=== PATIENT | female | born 1960 | race Caucasian/White ===

== ENCOUNTER 2017-12-31 17:55 | Observation (INO) ==
--- NOTE | 2017-12-31 18:23 | DR.EXTPAIN ---
HPI - Time seen Time seen: 18:30 - PCP Primary Care Physician: cal osborne - HPI Comment HPI Comment: HISTORY BOWEL OBSTRUCTION. SYMTOMS SIMILAR TO WHEN PATIENT HAVE BOWEL OBSTRUCTION. NO FEVER. NAUSEA WITH NON PROJECTILE VOMITING. DENIES DYSURIA. CONSTIPATION. LAST BM 2 DAYS AGO. - Complaint/Symptoms Chief Complaint Doctor Comments: ABDOMINAL PAIN AND DISTENSION FOE 2 DAYS. Chief Complaint:: pt stated her abd is swollowen and had a bm 2 days ago. she stated she has had problems with obstructions since 1987 - Nurses notes reviewed Nurses Notes Review: Yes - Source History Provided: Patient - Mode of arrival Mode of Arrival: Ambulatory - Timing Onset of Chief Complaint: 12/29/17 - Context History of: None - Associated signs and symptoms Associated Signs and Symptoms: Pain PMH - PMH Past Medical History: Yes Past Medical History: Seizures Past Surgical History: Yes Surgical History: Abdominal Surgery, Appendectomy, Cholecystectomy, Hysterectomy , Tonsillectomy - Family History History of Family Medical Conditions: No - Social History Does patient currently use any type of tobacco product: No Have you used tobacco products in the last 12 months: No Type of Tobacco Use: None Does any household member use tobacco: No Alcohol Use: None Do you use any recreational Drugs:: No Lives With: Mom Lives Where: Home - infectious screening In the last 2 months have you had wt loss of >10#?: NO Have you had fever, night sweats or hemotysis?: No Have you traveled outside the country in the last 6 months?: No Isolation: Standard ROS - Review of Systems Constitutional: Weakness, Fatigue, Loss of Appetite. negative: Chills, Fever Eyes: No Symptoms Reported. negative: Eye Pain, Discharge ENTM: No Symptoms Reported. negative: Ear Pain, Nose Discharge, Nose Congestion , Throat Pain Respiratoy: No Symptoms Reported. negative: Productive Cough, Non-Productive Cough, Short of Breath, Wheezing, Hemoptysis Cardiovascular: No Symptoms Reported Gastrointestinal/Abdominal: Abdominal Pain, Nausea, Vomiting Genitourinary: No Symptoms Reported. negative: Dysuria, Frequency, Hematuria Neurological: No Symptoms Reported, Weakness. negative: Headache, Dizziness Musculoskeletal: Muscle Pain Integumentary: No Symptoms Reported Hematologic/Lymphatic: No Symptoms Reported Endocrine: No Symptoms Reported All Other Systems: Reviewed and Negative PE - General Limitations: No Limitations General Appearance: Alert - Head Head Exam: Normal Inspection - Eyes Eye exam: Normal Appearance - ENT ENT Exam: Normal External Ear Exam - Neck Neck Exam: Trachea Midline - Chest Chest Inspection: Symmetric Chest Wall Rise - Respiratory Respiratory Exam: Normal Lung Sounds Bilat Respiratory Exam: Bilateral Clear to Auscultation - Cardiovascular Cardiovascular Exam: Regular Rate, Normal Rhythm, Normal Heart Sounds - Abdominal Exam Abdominal Exam: Normal Bowel Sounds, Distention, Tenderness Abdominal Tenderness: Diffuse, Moderate - Extremities Extremities Exam: Normal Inspection - Upper Extremities Shoulder Exam: Normal Inspection - Lower Extremities Neurovascular/Tendon Exam: Normal Capillary Refill Gait Exam: Observed and Normal - Back Back Exam: Normal Inspection - Neurological Neurological Exam: Alert, Oriented X3 - Psychiatric Psychiatric Exam: Normal Affect, Normal Mood - Skin Skin Exam: Normal Color - Vital Signs Vitals: Temperature 98.9 F Pulse Rate 105 Respiratory Rate 16 Blood Pressure 125/56 O2 Sat by Pulse Oximetry 97 MDM - Differential Diagnosis Differential Diagnosis: Other (ABDOMINAL PAIN, UTI, BOWEL OBSTRUCTION) Course - Treatment Treatment: SEE ORDERS - Education/Counseling Education/Counseling: Patient, Education Educated On: Diagnosis, Needs for Follow Up ROR - Labs Reviewed Laboratory Results Reviewed?: Yes Result Diagrams: 12/31/17 18:50 12/31/17 18:50 - XRAY XRAY Findings: REPORT DISCUSS WITH PATIENT. - Labs Reviewed Laboratory: WBC 7.7 X10^3/uL (3.6-10.0) 12/31/17 18:50 RBC 4.01 X10^6/uL (3.5-5.4) 12/31/17 18:50 Hgb 11.1 g/dL (12.0-16.0) L 12/31/17 18:50 Hct 33.9 % (36.0-47.0) L 12/31/17 18:50 MCV 84.8 fL (80.0-100.0) 12/31/17 18:50 MCH 27.7 pg (27.0-34.0) 12/31/17 18:50 MCHC 32.6 g/dL (33.0-35.0) L 12/31/17 18:50 RDW 15.8 % (11.6-16.5) 12/31/17 18:50 Plt Count 391 X10^3/uL (150.0-450.0) 12/31/17 18:50 MPV 6.5 fL (7.4-11.0) L 12/31/17 18:50 Neut % (Auto) 58.7 % (42.0-75.0) 12/31/17 18:50 Lymph % (Auto) 29.9 % (21.0-51.0) 12/31/17 18:50 [place] % (Auto) 7.5 % (0.0-13.0) 12/31/17 18:50 Eos % (Auto) 2.8 % (0.9-2.9) 12/31/17 18:50 Baso % (Auto) 1.1 % (0.2-1.0) H 12/31/17 18:50 Neut # (Auto) 4.6 x10^3/uL (2.2-4.8) 12/31/17 18:50 Lymph # (Auto) 2.3 X10^3/uL (1.3-2.9) 12/31/17 18:50 [place] # (Auto) 0.6 x10^3/uL (0.3-0.8) 12/31/17 18:50 Eos # (Auto) 0.2 x10^3/uL (0.0-0.2) 12/31/17 18:50 Baso # (Auto) 0.1 X10^3/uL (0.0-0.1) 12/31/17 18:50 Absolute Nucleated RBC 0.1 /100WBC 12/31/17 18:50 Sodium 138 mmol/L (136-145) 12/31/17 18:50 Corrected Sodium TNP 12/31/17 18:50 Potassium 3.8 mmol/L (3.5-5.1) 12/31/17 18:50 Chloride 101 mmol/L (98-107) 12/31/17 18:50 Carbon Dioxide 26.3 mmol/L (21-32) 12/31/17 18:50 BUN 16 mg/dL (7-18) 12/31/17 18:50 Creatinine 1.00 mg/dL (0.55-1.02) 12/31/17 18:50 Est GFR (MDRD) Af Amer > 60 (>60) 12/31/17 18:50 Est GFR (MDRD) Non-Af > 60 (>60) 12/31/17 18:50 Glucose 107 mg/dL (65-99) H 12/31/17 18:50 Calcium 9.6 mg/dL (8.5-10.1) 12/31/17 18:50 Corrected Calcium TNP 12/31/17 18:50 Total Bilirubin 0.20 mg/dL (0.2-1.0) 12/31/17 18:50 AST 21 Units/L (15-37) 12/31/17 18:50 ALT 22 Units/L (12-78) 12/31/17 18:50 Alkaline Phosphatase 135 Units/L (46-116) H 12/31/17 18:50 Total Protein 7.8 g/dL (6.4-8.2) 12/31/17 18:50 Albumin 4.0 g/dL (3.4-5.0) 12/31/17 18:50 Globulin 3.8 g/dL (2.5-4.5) 12/31/17 18:50 Albumin/Globulin Ratio 1.1 Ratio (1.1-2.1) 12/31/17 18:50 Amylase 34 Units/L (25-115) 12/31/17 18:50 Lipase 89 Units/L (73-393) 12/31/17 18:50 Specimen Type Clean catch urine 12/31/17 18:37 Urine Color Yellow (YELLOW) 12/31/17 18:37 Urine Appearance Clear (CLEAR) 12/31/17 18:37 Urine pH 6.0 (5.0 - 8.0) 12/31/17 18:37 Ur Specific [place] 1.015 (1.000-1.030) 12/31/17 18:37 Urine Protein Negative (NEGATIVE) 12/31/17 18:37 Urine Glucose (UA) Negative (NEGATIVE) 12/31/17 18:37 Urine Ketones Negative (NEGATIVE) 12/31/17 18:37 Urine Occult Blood Negative (NEGATIVE) 12/31/17 18:37 Urine Nitrite Negative (NEGATIVE) 12/31/17 18:37 Urine Bilirubin Negative (NEGATIVE) 12/31/17 18:37 Urine Urobilinogen Normal (NORMAL) 12/31/17 18:37 Ur Leukocyte Esterase 1+ (NEGATIVE) 12/31/17 18:37 Urine RBC 0-2 /HPF (NONE SEEN) 12/31/17 18:37 Urine WBC 3-5 /HPF (NONE SEEN) 12/31/17 18:37 Ur Squamous Epith Cells Many /HPF (NEGATIVE) 12/31/17 18:37 Urine Bacteria Trace /HPF (NEGATIVE) 12/31/17 18:37 Ur Culture Indicated? No/not indicated 12/31/17 18:37 - Diagnosis Discharge Problem: Partial bowel obstruction Qualifiers: Intestinal obstruction type: other intestinal obstruction Qualified Code(s): K56.690 - Other partial intestinal obstruction Abdominal pain Qualifiers: Abdominal location: generalized Qualified Code(s): R10.84 - Generalized abdominal pain - Discharge Plan Condition: Stable
[2017-12-31 19:02] LABS: BILIRUBIN,URINE NEGATIVE (NEGATIVE); BLOOD/HEMOGLOBIN,URINE NEGATIVE (NEGATIVE); GLUCOSE, URINE NEGATIVE (NEGATIVE); KETONES,URINE NEGATIVE (NEGATIVE); LEUKOCYTE ESTERASE ,URINE 1+ (NEGATIVE); NITRITES,URINE NEGATIVE (NEGATIVE); PROTEIN,URINE NEGATIVE (NEGATIVE); UROBILINOGEN,URINE NORMAL (NORMAL)
[2017-12-31 19:04] LABS: APPEARANCE,URINE CLEAR (CLEAR); COLOR,URINE YELLOW (YELLOW)
[2017-12-31 19:08] LABS: BACTERIA,URINE TRACE /HPF (NEGATIVE); RBC,URINE 0-2 /HPF (NONE SEEN); SQUAMOUS EPITHELIAL CELL,UR MANY /HPF (NEGATIVE)
[2017-12-31 19:18] LABS: BASOPHILS # (AUTO) 0.1 X10^3/uL (0.0-0.1); BASOPHILS % (AUTO) 1.1 % (0.2-1.0); EOSINOPHILS # (AUTO) 0.2 x10^3/uL (0.0-0.2); EOSINOPHILS % (AUTO) 2.8 % (0.9-2.9); HEMATOCRIT 33.9 % (36.0-47.0); HEMOGLOBIN 11.1 g/dL (12.0-16.0); LYMPHOCYTES # (AUTO) 2.3 X10^3/uL (1.3-2.9); LYMPHOCYTES % (AUTO) 29.9 % (21.0-51.0); MEAN CORPUSCULAR HEMOGLOBIN 27.7 pg (27.0-34.0); MEAN CORPUSCULAR HGB CONC 32.6 g/dL (33.0-35.0); MEAN CORPUSCULAR VOLUME 84.8 fL (80.0-100.0); MEAN PLATELET VOLUME 6.5 fL (7.4-11.0); MONOCYTES # (AUTO) 0.6 x10^3/uL (0.3-0.8); MONOCYTES % (AUTO) 7.5 % (0.0-13.0); NEUTROPHILS # (AUTO) 4.6 x10^3/uL (2.2-4.8); NEUTROPHILS % (AUTO) 58.7 % (42.0-75.0); PLATELET COUNT 391 X10^3/uL (150.0-450.0); RED BLOOD COUNT 4.01 X10^6/uL (3.5-5.4); RED CELL DISTRIBUTION WIDTH 15.8 % (11.6-16.5); WHITE BLOOD COUNT 7.7 X10^3/uL (3.6-10.0)
[2017-12-31 19:33] LABS: ALANINE AMINOTRANSFERASE 22 Units/L (12-78); ALKALINE PHOSPHATASE 135 Units/L (46-116); AMYLASE 34 Units/L (25-115); ASPARTATE AMINO TRANSFERASE 21 Units/L (15-37); BLOOD UREA NITROGEN 16 mg/dL (7-18); CALCIUM 9.6 mg/dL (8.5-10.1); CARBON DIOXIDE 26.3 mmol/L (21-32); CHLORIDE 101 mmol/L (98-107); LIPASE 89 Units/L (73-393); SODIUM 138 mmol/L (136-145); TOTAL PROTEIN 7.8 g/dL (6.4-8.2); eGFR NON BLACK RACES > 60 (>60)
--- NOTE | 2017-12-31 19:38 | CT ---
CT abdomen and pelvis without contrast Indication: Abdominal swelling, constipation Comparison: None Technique: CT images of the abdomen and pelvis were obtained without contrast. Automatic exposure con trol was utilized. Findings: No acute skeletal abnormality. The lung bases are grossly clear. The visualized portions of bilateral breast implants are grossly intact. Evaluation of the abdominal pelvic viscera is limited without contrast. Previous cholecystectomy is n oted. There is dilatation of the common duct, which measures 1.7 cm in diameter at the level of the p luis manuel hepatis. There is suggestion of intrahepatic biliary dilation as well. No radiopaque ductal ston e or obvious obstructing periampullary mass is observed. Within noncontrast limitations, the remainde r of the liver, spleen, stomach, duodenum, pancreas, adrenals, and kidneys demonstrate no significant abnormality, aside from a tiny nonobstructing stone within the left upper renal pole collecting syst em. No ureteral stones are observed. Previous sigmoid anastomosis is noted, with mild perianastomotic dilatation. There is moderate coloni c stool burden distally. There is mild gas dilatation of the colon more proximally. No marked small b owel dilatation is observed. The uterus is not identified. The urinary bladder and rectum are unremar kable. No free fluid or adenopathy. Impression: 1. Moderate distal colonic stool burden, suggestive for constipation. There is mild gas dilatation of the more proximal colon, which could represent ileus or low-grade partial obstruction. 2. Fairly marked intrahepatic and extrahepatic biliary dilation, without obvious source. Correlate wi th biliary markers of obstruction. ERCP or MRCP could be helpful, if indicated. 3. Tiny nonobstructing left renal stone and other findings as above. Reported By:
[2017-12-31] MEDS ORDERED: NS 1000 ML 1,000 ML IV ONE (21:03)
[2017-12-31] MEDS ORDERED: ZOFRAN INJ 4 MG VIAL IVP ONE (21:03)
[2017-12-31] MEDS ORDERED: DILAUDID INJ IVP ONE (21:04)
[2017-12-31] MEDS ORDERED: ZOFRAN INJ 4 MG VIAL ONE (21:12)
[2017-12-31] MEDS ORDERED: NS 1000 ML 1,000 ML ONE (21:12)
[2017-12-31] MEDS ORDERED: DILAUDID INJ ONE (21:14)
[2017-12-31] MEDS ORDERED: PATIENT'S HOME MEDICATION (Lorazepam [Lorazepam] 1 TAB) PO SCH (23:45)
[2017-12-31] MEDS ORDERED: ZANAFLEX PO PRN (23:50)
[2017-12-31] MEDS: NS 1000 ML 1,000 ML IV SCH (23:55)
[2017-12-31] MEDS: PROTONIX INJ 40 MG VIAL IVP SCH (23:55)
[2018-01-01] MEDS ORDERED: ATIVAN TAB 1 MG ONE
[2018-01-01] MEDS ORDERED: LAMICTAL TAB 100 MG PO ONE
[2018-01-01 01:06] VITALS: BMI 30.2
[2018-01-01] MEDS: DILAUDID INJ IVP PRN ×6 (01:22→22:10)
[2018-01-01] MEDS: ATIVAN TAB 1 MG PO SCH ×4 (02:02→22:00)
[2018-01-01] MEDS: ZOFRAN INJ 4 MG VIAL IVP PRN ×3 (05:49→22:21)
[2018-01-01 06:14] LABS: BASOPHILS # (AUTO) 0.1 X10^3/uL (0.0-0.1); BASOPHILS % (AUTO) 1.1 % (0.2-1.0); EOSINOPHILS # (AUTO) 0.3 x10^3/uL (0.0-0.2); EOSINOPHILS % (AUTO) 3.2 % (0.9-2.9); HEMATOCRIT 30.7 % (36.0-47.0); HEMOGLOBIN 10.3 g/dL (12.0-16.0); LYMPHOCYTES # (AUTO) 2.7 X10^3/uL (1.3-2.9); LYMPHOCYTES % (AUTO) 29.7 % (21.0-51.0); MEAN CORPUSCULAR HEMOGLOBIN 28.1 pg (27.0-34.0); MEAN CORPUSCULAR HGB CONC 33.6 g/dL (33.0-35.0); MEAN CORPUSCULAR VOLUME 83.7 fL (80.0-100.0); MEAN PLATELET VOLUME 6.7 fL (7.4-11.0); MONOCYTES % (AUTO) 10.7 % (0.0-13.0); NEUTROPHILS # (AUTO) 5.1 x10^3/uL (2.2-4.8); NEUTROPHILS % (AUTO) 55.3 % (42.0-75.0); PLATELET COUNT 346 X10^3/uL (150.0-450.0); RED BLOOD COUNT 3.66 X10^6/uL (3.5-5.4); RED CELL DISTRIBUTION WIDTH 16.4 % (11.6-16.5)
[2018-01-01 06:20] LABS: ALANINE AMINOTRANSFERASE 9 Units/L (12-78); ALBUMIN 3.4 g/dL (3.4-5.0); ALKALINE PHOSPHATASE 111 Units/L (46-116); ASPARTATE AMINO TRANSFERASE 20 Units/L (15-37); BLOOD UREA NITROGEN 14 mg/dL (7-18); CALCIUM 8.5 mg/dL (8.5-10.1); CARBON DIOXIDE 24.9 mmol/L (21-32); CHLORIDE 104 mmol/L (98-107); CREATININE 0.77 mg/dL (0.55-1.02); SODIUM 139 mmol/L (136-145); TOTAL PROTEIN 6.6 g/dL (6.4-8.2); eGFR NON BLACK RACES > 60 (>60)
[2018-01-01 06:33] LABS: PLATELET MORPHOLOGY COMMENT NORMAL (NORMAL); WHITE BLOOD COUNT 9.9 X10^3/uL (3.6-10.0)
[2018-01-01] MEDS ORDERED: LAMOTRIGINE PO SCH (09:00)
[2018-01-01] MEDS: PROTONIX INJ 40 MG VIAL IVP SCH (09:17)
[2018-01-01] MEDS: NS 1000 ML 1,000 ML IV SCH ×3 (09:17→23:00)
--- NOTE | 2018-01-01 09:17 | RAD ---
HISTORY: Abdominal pain. Possible small bowel obstruction. Study: Frontal view of the chest, flat and upright views of the abdomen Comparison: CT 1 day prior Findings: Cardiomediastinal silhouette is normal in size. No focal consolidations, pleural effusions or pneumot horax. Osseous structures are without acute abnormality. Flat and upright views of the abdomen demonstrates a number of prominent loops of air-filled large seb wel. Distal bowel gas present. No free air. No abnormal calcifications or abnormal soft tissue shado ws. No acute bony abnormalities. IMPRESSION: 1. No acute cardiopulmonary disease. 2. Prominent loops of large bowel. Although these are not pathologically enlarged, a more distal obs truction cannot be completely excluded. Correlate with bowel habits. Reported By:
[2018-01-01] MEDS: LAMICTAL TAB 100 MG PO SCH ×2 (09:18→22:01)
[2018-01-01] MEDS: TYLENOL 325 MG TAB PO PRN ×2 (09:55→14:55)
[2018-01-01] MEDS ORDERED: NS 100 ML IV + SPIKE MINIBAG* 100 ML IV ONE ×2 (13:17→20:05)
[2018-01-01] MEDS ORDERED: NS 250 ML IV 250 ML IV ONE (13:22)
[2018-01-01] MEDS: ZOSYN VIAL 3.375 GRAMS IV SCH ×2 (13:32→22:00)
--- NOTE | 2018-01-01 13:32 | DR.H&P ---
H&P - History & Physical for Day of: H&P Date: 12/31/17 - Chief Complaint Chief Complaint: ABDOMINAL PAIN - History of Present Illness History of Present Illness: 57 WF ER ADMISSION WITH CO ABDOMINAL PAIN. PT HAS HX OF MULTPLE ABDOMINAL SURGERIES AND BOWEL OBSTRUCTIONS PT HAS BEEN UNDER THE CARE OF SURGEON IN [place], HX OF PARTIAL COLECTOMY. PT CO ABDOMINAL GRADUALY WORSE OVER LAST 2 DAYS. ER EVALUATION REVEALS BOWEL OBTRUCTION, PT ADMITTED FOR PAIN CONTROL, SURGICAL CONSULT - Past Medical History Past Medical History: Seizures Additional Medical History: ABDOMINAL ADHESIONS - Past Surgical History Surgical History: Appendectomy, Cholecystectomy, Hysterectomy, Tonsillectomy, Other - Social History Does patient currently use any type of tobacco product: No Have you used tobacco products in the last 12 months: No Type of Tobacco Use: None Does any household member use tobacco: No Alcohol Use: None Drug Use: None - Medications Home Medications: gabapentin [From Neurontin] Allergy (Verified 12/31/17 17:57) metoclopramide [From Reglan] Allergy (Verified 12/31/17 17:57) sertraline [From Zoloft] Allergy (Verified 12/31/17 17:57) morphine Adverse Reaction (Verified 12/31/17 17:57) CONTINUE taking the following medications acetaminophen-codeine [Tylenol-Codeine #4] 1 tab PO Q6H PRN 12/31/17 [History] dicyclomine 1 tab PO DAILY 12/31/17 [History] duloxetine 1.5 tab PO HS 12/31/17 [History] lamotrigine 1.5 tab PO BID 12/31/17 [History] lorazepam 1 tab PO Q6H 12/31/17 [History] omeprazole 1 tab PO BID 12/31/17 [History] promethazine 1 tab PO Q6H PRN 12/31/17 [History] tizanidine 1 tab PO BID PRN 12/31/17 [History] zolpidem 1 tab PO HS 12/31/17 [History] - Review of Systems Constitutional: Weakness Eyes: No Symptoms Reported ENT: No Symptoms Reported Respiratory: No Symptoms Reported Cardiovascular: No Symptoms Reported Gastrointestinal: Nausea, Abdominal Pain, Constipation Genitourinary: No Symptoms Reported Musculoskeletal: No Symptoms Reported Skin: No Symptoms Reported Neurological: No Symptoms Reported - Physical Exam Vital Signs: Temperature 98.2 F Pulse Rate [Left Brachial] 99 Pulse Rate 105 Respiratory Rate 18 Blood Pressure [Right Arm] 111/59 Blood Pressure [Left Arm] 110/57 Blood Pressure 125/56 O2 Sat by Pulse Oximetry 91 Oriented: Normal Eyes: Normal Ear: Normal Nose: Normal Throat: Normal Respiratory: Clear Throughout Cardiovascular: Normal : Normal Auscultation: Bowel Sounds: Increased Tenderness: Diffuse Skin: Normal Musculoskeletal: Normal Psychiatric: Normal Mood Description: Calm Speech Pattern: Clear, Appropriate - Assessment/Plan (1) Partial bowel obstruction Qualifiers: Intestinal obstruction type: other intestinal obstruction Qualified Code(s) : K56.690 - Other partial intestinal obstruction Status: Acute Plan: ADMIT, NPO, IV HYDRATION PAIN CONTROL. REPEAT AM KUB. VERIFY HOME MEDS, SURGICAL CONSULT (2) Abdominal pain Qualifiers: Abdominal location: generalized Qualified Code(s): R10.84 - Generalized abdominal pain Status: Acute - Allergies Allergies/Adverse Reactions: Allergies Allergy/AdvReac Type Severity Reaction Status Date / Time gabapentin [From Neurontin] Allergy Verified 12/31/17 17:57 metoclopramide [From Reglan] Allergy Verified 12/31/17 17:57 sertraline [From Zoloft] Allergy Verified 12/31/17 17:57 morphine AdvReac Verified 12/31/17 17:57
--- NOTE | 2018-01-01 13:42 | PCM.PROG ---
Progress Note - Progress Note for Day of Date: 01/01/18 - Subjective Subjective: 57 WF ER ADMISSION WITH ABDOMINAL PAIN, BOWEL OBSTRUCTION, CONSTIPATION. DR PATTERSON CONSULTING. PT NPO. BOWEL SOUNDS PRESENT, CONTINUE ABDOMINAL TENDERNESS, REPEAT KUB THIS AM - Past Medical Family Social History Past Med/Fam/Surg Hx: No changes since H&P Allergies: Allergies gabapentin [From Neurontin] Allergy (Verified 12/31/17 17:57) metoclopramide [From Reglan] Allergy (Verified 12/31/17 17:57) sertraline [From Zoloft] Allergy (Verified 12/31/17 17:57) morphine Adverse Reaction (Verified 12/31/17 17:57) - Review of Systems ROS: No change since H&P - Vital Signs and I&O's Vital Signs: Temperature 98.2 F Pulse Rate [Left Brachial] 99 Pulse Rate 105 Respiratory Rate 18 Blood Pressure [Right Arm] 111/59 Blood Pressure [Left Arm] 110/57 Blood Pressure 125/56 O2 Sat by Pulse Oximetry 91 Intake and Output: Intake & Output 12/30/17 12/31/17 01/01/18 01/02/18 11:59 11:59 11:59 11:59 Intake Total 1999 Output Total / Balance 1997 - Physical Exam Oriented: Normal Eyes: Normal Ear: Normal Nose: Normal Throat: Normal Respiratory: Normal Cardiovascular: Normal : Normal Auscultation: Bowel Sounds: Increased Tenderness: Diffuse, Moderate Skin: Normal Musculoskeletal: Normal Psychiatric: Normal Mood Description: Calm Speech Pattern: Clear, Appropriate - Laboratory and Diagnostics Result Diagrams: 01/01/18 04:47 01/01/18 04:47 Labs: Laboratory WBC 9.9 X10^3/uL (3.6-10.0) 01/01/18 04:47 RBC 3.66 X10^6/uL (3.5-5.4) 01/01/18 04:47 Hgb 10.3 g/dL (12.0-16.0) L 01/01/18 04:47 Hct 30.7 % (36.0-47.0) L 01/01/18 04:47 MCV 83.7 fL (80.0-100.0) 01/01/18 04:47 MCH 28.1 pg (27.0-34.0) 01/01/18 04:47 MCHC 33.6 g/dL (33.0-35.0) 01/01/18 04:47 RDW 16.4 % (11.6-16.5) 01/01/18 04:47 Plt Count 346 X10^3/uL (150.0-450.0) 01/01/18 04:47 Plt Count Comment Adequate (ADEQUATE) 01/01/18 04:47 MPV 6.7 fL (7.4-11.0) L 01/01/18 04:47 Neut % (Auto) 55.3 % (42.0-75.0) 01/01/18 04:47 Lymph % (Auto) 29.7 % (21.0-51.0) 01/01/18 04:47 [place] % (Auto) 10.7 % (0.0-13.0) 01/01/18 04:47 Eos % (Auto) 3.2 % (0.9-2.9) H 01/01/18 04:47 Baso % (Auto) 1.1 % (0.2-1.0) H 01/01/18 04:47 Neut # (Auto) 5.1 x10^3/uL (2.2-4.8) H 01/01/18 04:47 Lymph # (Auto) 2.7 X10^3/uL (1.3-2.9) 01/01/18 04:47 [place] # (Auto) 1.0 x10^3/uL (0.3-0.8) H 01/01/18 04:47 Eos # (Auto) 0.3 x10^3/uL (0.0-0.2) H 01/01/18 04:47 Baso # (Auto) 0.1 X10^3/uL (0.0-0.1) 01/01/18 04:47 Absolute Nucleated RBC 0.1 /100WBC 01/01/18 04:47 Plt Morphology Comment Normal (NORMAL) 01/01/18 04:47 RBC Morphology Normal (NORMAL) 01/01/18 04:47 Sodium 139 mmol/L (136-145) 01/01/18 04:47 Corrected Sodium TNP 01/01/18 04:47 Potassium 3.9 mmol/L (3.5-5.1) 01/01/18 04:47 Chloride 104 mmol/L (98-107) 01/01/18 04:47 Carbon Dioxide 24.9 mmol/L (21-32) 01/01/18 04:47 BUN 14 mg/dL (7-18) 01/01/18 04:47 Creatinine 0.77 mg/dL (0.55-1.02) 01/01/18 04:47 Est GFR (MDRD) Af Amer > 60 (>60) 01/01/18 04:47 Est GFR (MDRD) Non-Af > 60 (>60) 01/01/18 04:47 Glucose 97 mg/dL (65-99) 01/01/18 04:47 Lactic Acid < 0.3 mmol/L (0.4-2.0) L 01/01/18 10:45 Calcium 8.5 mg/dL (8.5-10.1) 01/01/18 04:47 Corrected Calcium TNP 01/01/18 04:47 Total Bilirubin 0.20 mg/dL (0.2-1.0) 01/01/18 04:47 AST 20 Units/L (15-37) 01/01/18 04:47 ALT 9 Units/L (12-78) L 01/01/18 04:47 Alkaline Phosphatase 111 Units/L (46-116) 01/01/18 04:47 Total Protein 6.6 g/dL (6.4-8.2) 01/01/18 04:47 Albumin 3.4 g/dL (3.4-5.0) 01/01/18 04:47 Globulin 3.2 g/dL (2.5-4.5) 01/01/18 04:47 Albumin/Globulin Ratio 1.1 Ratio (1.1-2.1) 01/01/18 04:47 Amylase 34 Units/L (25-115) 12/31/17 18:50 Lipase 89 Units/L (73-393) 12/31/17 18:50 Specimen Type Clean catch urine 12/31/17 18:37 Urine Color Yellow (YELLOW) 12/31/17 18:37 Urine Appearance Clear (CLEAR) 12/31/17 18:37 Urine pH 6.0 (5.0 - 8.0) 12/31/17 18:37 Ur Specific [place] 1.015 (1.000-1.030) 12/31/17 18:37 Urine Protein Negative (NEGATIVE) 12/31/17 18:37 Urine Glucose (UA) Negative (NEGATIVE) 12/31/17 18:37 Urine Ketones Negative (NEGATIVE) 12/31/17 18:37 Urine Occult Blood Negative (NEGATIVE) 12/31/17 18:37 Urine Nitrite Negative (NEGATIVE) 12/31/17 18:37 Urine Bilirubin Negative (NEGATIVE) 12/31/17 18:37 Urine Urobilinogen Normal (NORMAL) 12/31/17 18:37 Ur Leukocyte Esterase 1+ (NEGATIVE) 12/31/17 18:37 Urine RBC 0-2 /HPF (NONE SEEN) 12/31/17 18:37 Urine WBC 3-5 /HPF (NONE SEEN) 12/31/17 18:37 Ur Squamous Epith Cells Many /HPF (NEGATIVE) 12/31/17 18:37 Urine Bacteria Trace /HPF (NEGATIVE) 12/31/17 18:37 Ur Culture Indicated? No/not indicated 12/31/17 18:37 - Plan (1) Partial bowel obstruction Status: Acute Qualifiers: Intestinal obstruction type: other intestinal obstruction Qualified Code(s) : K56.690 - Other partial intestinal obstruction Plan: NPO, IV HYDRATION PAIN CONTROL. REPEAT KUB, BOWEL REGIMEN. VERIFY HOME MEDS, SURGICAL CONSULT (2) Abdominal pain Status: Acute Qualifiers: Abdominal location: generalized Qualified Code(s): R10.84 - Generalized abdominal pain
[2018-01-01 15:58] LABS: CRYPTOSPORIDIUM PARVUM ANTIGEN NEGATIVE (NEGATIVE); GIARDIA LAMBLIA ANTIGEN NEGATIVE (NEGATIVE)
[2018-01-01 15:59] LABS: STOOL FOR WBC POSITIVE (NEGATIVE)
[2018-01-01] MEDS ORDERED: AMBIEN PO SCH (21:00)
[2018-01-02] MEDS: DILAUDID INJ IVP PRN ×2 (03:37→07:57)
[2018-01-02] MEDS: ATIVAN TAB 1 MG PO SCH ×2 (03:37→09:22)
[2018-01-02] MEDS ORDERED: NS 100 ML IV + SPIKE MINIBAG* 100 ML IV ONE (05:44)
[2018-01-02] MEDS: ZOSYN VIAL 3.375 GRAMS IV SCH (05:49)
[2018-01-02 05:58] LABS: BASOPHILS % (AUTO) 0.5 % (0.2-1.0); EOSINOPHILS # (AUTO) 0.1 x10^3/uL (0.0-0.2); EOSINOPHILS % (AUTO) 1.5 % (0.9-2.9); HEMATOCRIT 30.2 % (36.0-47.0); HEMOGLOBIN 10.2 g/dL (12.0-16.0); LYMPHOCYTES # (AUTO) 1.6 X10^3/uL (1.3-2.9); LYMPHOCYTES % (AUTO) 20.4 % (21.0-51.0); MEAN CORPUSCULAR HEMOGLOBIN 28.2 pg (27.0-34.0); MEAN CORPUSCULAR HGB CONC 33.6 g/dL (33.0-35.0); MEAN CORPUSCULAR VOLUME 84.1 fL (80.0-100.0); MEAN PLATELET VOLUME 6.3 fL (7.4-11.0); MONOCYTES # (AUTO) 0.6 x10^3/uL (0.3-0.8); MONOCYTES % (AUTO) 7.9 % (0.0-13.0); NEUTROPHILS # (AUTO) 5.4 x10^3/uL (2.2-4.8); NEUTROPHILS % (AUTO) 69.7 % (42.0-75.0); PLATELET COUNT 383 X10^3/uL (150.0-450.0); RED CELL DISTRIBUTION WIDTH 16.2 % (11.6-16.5); WHITE BLOOD COUNT 7.7 X10^3/uL (3.6-10.0)
[2018-01-02] MEDS: TYLENOL 325 MG TAB PO PRN ×2 (05:59→12:16)
[2018-01-02 06:05] LABS: ALANINE AMINOTRANSFERASE 16 Units/L (12-78); ALBUMIN 3.4 g/dL (3.4-5.0); ALKALINE PHOSPHATASE 109 Units/L (46-116); ASPARTATE AMINO TRANSFERASE 18 Units/L (15-37); BLOOD UREA NITROGEN 6 mg/dL (7-18); CALCIUM 8.2 mg/dL (8.5-10.1); CARBON DIOXIDE 27.2 mmol/L (21-32); CHLORIDE 101 mmol/L (98-107); CREATININE 0.76 mg/dL (0.55-1.02); SODIUM 138 mmol/L (136-145); TOTAL PROTEIN 6.7 g/dL (6.4-8.2); eGFR NON BLACK RACES > 60 (>60)
[2018-01-02] MEDS: ZOFRAN INJ 4 MG VIAL IVP PRN (07:56)
--- NOTE | 2018-01-02 09:11 | RAD ---
Examination: Acute abdominal series. Clinical history: Abdominal pain, possible small bowel obstruction. Technique: A PA view of the chest, as well as supine and erect views of the abdomen were obtained. Comparison: 01/01/2018. Findings: The lungs are mildly hypoventilated, precluding evaluation of the heart size. No pneumothorax or pleural effusion is noted. Linear opacities are present at the left lung base, likely due to subsegmental atelectasis or scarrin g. Surgical clips are seen overlying the right upper abdomen consistent with a prior cholecystectomy. The bowel gas pattern is nonspecific with multiple mildly distended air-filled loops of small bowel s een in the mid and lower abdomen, a moderate amount of stool seen in the colon, and gas seen in the r ectum. Findings could be indicative of a localized ileus or an incomplete small bowel obstruction. No abdominal mass or free air is noted. A soft tissue opacity is seen overlying the pelvis, likely a partially filled bladder. Calcific densities are seen overlying the pelvis, likely due to phleboliths. No acute osseous abnormality is noted. Impression: 1. The bowel gas pattern is nonspecific with multiple mildly distended air-filled loops of small yazmin l seen in the mid and lower abdomen, a moderate amount of stool seen in the colon, and gas seen in th e rectum. Findings could be indicative of a localized ileus or an incomplete small bowel obstruction. Clinical correlation with continued follow-up is recommended. 2. Hypoventilated lungs. 3. Subsegmental atelectasis versus scarring at the left lung base. Reported By:
[2018-01-02] MEDS: PROTONIX INJ 40 MG VIAL IVP SCH (09:21)
[2018-01-02] MEDS: LAMICTAL TAB 100 MG PO SCH (09:22)
--- NOTE | 2018-01-02 09:36 | DR.PROGNOT ---
Hospital Progress Notes - Progress Note for Day of: Progress Note Date: 01/02/18 - Chief Complaint Chief Complaint: still c/o mid abdominal pain with mild nausea , no vomiting . had small BM with the enemas. abdominal xray today showed ileus vs partial SBO with dilated small bowel loops . afebrile and having normal lab work .. - Past Medical Family Social History Past Med/Fam/Surg Hx: No changes since H&P Allergies: Allergies gabapentin [From Neurontin] Allergy (Verified 12/31/17 17:57) metoclopramide [From Reglan] Allergy (Verified 12/31/17 17:57) sertraline [From Zoloft] Allergy (Verified 12/31/17 17:57) morphine Adverse Reaction (Verified 12/31/17 17:57) - Review Of Systems ROS: No change since H&P - Vital Signs Vital Signs: Temperature 98.9 F Pulse Rate [Left Brachial] 101 Pulse Rate 105 Respiratory Rate 16 Blood Pressure [Right Arm] 111/59 Blood Pressure [Left Arm] 125/57 Blood Pressure 125/56 O2 Sat by Pulse Oximetry 99 - Physical Exam Oriented: Normal Eyes: Normal Ear: Normal Nose: Normal Throat: Normal Respiratory: Normal Cardiovascular: Normal : Normal GI:Auscultation: Normal GI: Tenderness: Diffuse, Periumbilical (full abdomen with generalized tenderness , no hernias .), Moderate Skin: Normal Musculoskeletal: Normal Psychiatric: Normal Mood Description: Calm Speech Pattern: Clear, Appropriate - Laboratory and Diagnostics Result Diagrams: 01/02/18 05:12 01/02/18 05:12 Labs: 01/01/18 14:39 Stool - Final Laboratory WBC 7.7 X10^3/uL (3.6-10.0) 01/02/18 05:12 RBC 3.60 X10^6/uL (3.5-5.4) 01/02/18 05:12 Hgb 10.2 g/dL (12.0-16.0) L 01/02/18 05:12 Hct 30.2 % (36.0-47.0) L 01/02/18 05:12 MCV 84.1 fL (80.0-100.0) 01/02/18 05:12 MCH 28.2 pg (27.0-34.0) 01/02/18 05:12 MCHC 33.6 g/dL (33.0-35.0) 01/02/18 05:12 RDW 16.2 % (11.6-16.5) 01/02/18 05:12 Plt Count 383 X10^3/uL (150.0-450.0) 01/02/18 05:12 Plt Count Comment Adequate (ADEQUATE) 01/01/18 04:47 MPV 6.3 fL (7.4-11.0) L 01/02/18 05:12 Neut % (Auto) 69.7 % (42.0-75.0) 01/02/18 05:12 Lymph % (Auto) 20.4 % (21.0-51.0) L 01/02/18 05:12 Frederick % (Auto) 7.9 % (0.0-13.0) 01/02/18 05:12 Eos % (Auto) 1.5 % (0.9-2.9) 01/02/18 05:12 Baso % (Auto) 0.5 % (0.2-1.0) 01/02/18 05:12 Neut # (Auto) 5.4 x10^3/uL (2.2-4.8) H 01/02/18 05:12 Lymph # (Auto) 1.6 X10^3/uL (1.3-2.9) 01/02/18 05:12 Frederick # (Auto) 0.6 x10^3/uL (0.3-0.8) 01/02/18 05:12 Eos # (Auto) 0.1 x10^3/uL (0.0-0.2) 01/02/18 05:12 Baso # (Auto) 0.0 X10^3/uL (0.0-0.1) 01/02/18 05:12 Absolute Nucleated RBC 0.0 /100WBC 01/02/18 05:12 Plt Morphology Comment Normal (NORMAL) 01/01/18 04:47 RBC Morphology Normal (NORMAL) 01/01/18 04:47 Sodium 138 mmol/L (136-145) 01/02/18 05:12 Corrected Sodium TNP 01/02/18 05:12 Potassium 3.7 mmol/L (3.5-5.1) 01/02/18 05:12 Chloride 101 mmol/L (98-107) 01/02/18 05:12 Carbon Dioxide 27.2 mmol/L (21-32) 01/02/18 05:12 BUN 6 mg/dL (7-18) L 01/02/18 05:12 Creatinine 0.76 mg/dL (0.55-1.02) 01/02/18 05:12 Est GFR (MDRD) Af Amer > 60 (>60) 01/02/18 05:12 Est GFR (MDRD) Non-Af > 60 (>60) 01/02/18 05:12 Glucose 86 mg/dL (65-99) 01/02/18 05:12 Lactic Acid < 0.3 mmol/L (0.4-2.0) L 01/01/18 10:45 Calcium 8.2 mg/dL (8.5-10.1) L 01/02/18 05:12 Corrected Calcium TNP 01/02/18 05:12 Total Bilirubin 0.30 mg/dL (0.2-1.0) 01/02/18 05:12 AST 18 Units/L (15-37) 01/02/18 05:12 ALT 16 Units/L (12-78) 01/02/18 05:12 Alkaline Phosphatase 109 Units/L (46-116) 01/02/18 05:12 Total Protein 6.7 g/dL (6.4-8.2) 01/02/18 05:12 Albumin 3.4 g/dL (3.4-5.0) 01/02/18 05:12 Globulin 3.3 g/dL (2.5-4.5) 01/02/18 05:12 Albumin/Globulin Ratio 1.0 Ratio (1.1-2.1) L 01/02/18 05:12 Amylase 34 Units/L (25-115) 12/31/17 18:50 Lipase 89 Units/L (73-393) 12/31/17 18:50 Specimen Type Clean catch urine 12/31/17 18:37 Urine Color Yellow (YELLOW) 12/31/17 18:37 Urine Appearance Clear (CLEAR) 12/31/17 18:37 Urine pH 6.0 (5.0 - 8.0) 12/31/17 18:37 Ur Specific Lena 1.015 (1.000-1.030) 12/31/17 18:37 Urine Protein Negative (NEGATIVE) 12/31/17 18:37 Urine Glucose (UA) Negative (NEGATIVE) 12/31/17 18:37 Urine Ketones Negative (NEGATIVE) 12/31/17 18:37 Urine Occult Blood Negative (NEGATIVE) 12/31/17 18:37 Urine Nitrite Negative (NEGATIVE) 12/31/17 18:37 Urine Bilirubin Negative (NEGATIVE) 12/31/17 18:37 Urine Urobilinogen Normal (NORMAL) 12/31/17 18:37 Ur Leukocyte Esterase 1+ (NEGATIVE) 12/31/17 18:37 Urine RBC 0-2 /HPF (NONE SEEN) 12/31/17 18:37 Urine WBC 3-5 /HPF (NONE SEEN) 12/31/17 18:37 Ur Squamous Epith Cells Many /HPF (NEGATIVE) 12/31/17 18:37 Urine Bacteria Trace /HPF (NEGATIVE) 12/31/17 18:37 Ur Culture Indicated? No/not indicated 12/31/17 18:37 Stool Description 10g,darkbrown,liquid 01/01/18 14:39 Stl Occult Blood (IFOB) Positive (NEGATIVE) A 01/01/18 14:39 Stool for White Cells Positive (NEGATIVE) A 01/01/18 14:39 Stl C. diff Tox B Gene Negative (NEGATIVE) 01/01/18 14:39 Stl C. diff [id number] Negative (NEGATIVE) 01/01/18 14:39 Cryptosporid parvum Ag Negative (NEGATIVE) 01/01/18 14:39 Giardia lamblia Ag Negative (NEGATIVE) 01/01/18 14:39 - Assessment and Plan 1: partial SBO and ileus. abdominal adhesions. chronic narcotic use for pain. will start on full liquid today and ambulate more . repeat enemas this am . - Problem Patient Problems: Patient Problems Partial bowel obstruction (Acute) K56.600 Abdominal pain (Acute) R10.9
[2018-01-02] MEDS ORDERED: NORCO 5/325 MG TAB PO ONE (12:02)
[2018-01-02 12:07] VITALS: BP 126/59
== END 2018-01-02 14:30 | disposition home or self-care (01) ==
LOC: ER 17:55 → MED/SURG 17:55
PROVIDERS: ADMIT Internal Medicine; ATTEND Internal Medicine
DX: D64.89 Other specified anemias; K59.09 Other constipation; K56.690 Other partial intestinal obstruction; R19.5 Other fecal abnormalities; R11.2 Nausea with vomiting, unspecified; Z79.899 Other long term (current) drug therapy; Z87.19 Personal history of other diseases of the digestive system; R10.84 Generalized abdominal pain
CPT/HCPCS: 36415; 74022; 74176; 80053; 81001; 81003; 82150; 82270; 83605; 83630; 83690; 85025; 87045; 87328; 87329; 87427; 87449; 87493; 87899; 99283; A4222; C9113; G0378; J1170; J2405; J2543; J3490; J7030; J7050

== ENCOUNTER 2018-02-22 23:40 | Inpatient (IN) ==
[2018-02-23] MEDS ORDERED: ZOFRAN INJ 4 MG VIAL IVP ONE (00:34)
[2018-02-23] MEDS ORDERED: DEMEROL INJ IVP ONE (00:34)
[2018-02-23] MEDS ORDERED: NS 1000 ML 1,000 ML ONE (00:36)
[2018-02-23] MEDS ORDERED: ZOFRAN INJ 4 MG VIAL ONE (00:37)
[2018-02-23] MEDS ORDERED: DEMEROL INJ ONE (00:38)
--- NOTE | 2018-02-23 00:54 | CT ---
CT abdomen and pelvis without contrast Indication: Abdominal pain, distension Technique: Helical CT images of the abdomen and pelvis were obtained without IV contrast. Reformatted images in the coronal and sagittal planes were also generated for review. Comparison: 12/31/2017 Findings: Partially visualized bilateral breast implants noted. Imaged lung bases are clear. No aggre ssive osseous lesions are identified. Within the limits of a noncontrast exam, the gallbladder is surgically absent with grossly stable int ra and extrahepatic biliary dilatation. The unenhanced liver, spleen, pancreas, adrenals and kidneys are unremarkable apart from a punctate nonobstructing stone within the upper pole the left kidney. No radiopaque ureteral stones are identified and there is no mikhail left or right hydroureteronephrosis. Evaluation of the GI tract is limited without intravenous or enteric contrast. Given these limitation s, prior partial colectomy with colonic anastomosis within the left lower quadrant again noted. There is moderate stool burden within the distal colon and rectum. There is diffuse fluid and gaseous dist ension of the more proximal colon as well as small bowel, which measures up to 3.9 cm in diameter. No pneumatosis or free intraperitoneal air is currently identified. The abdominal aorta is normal in caliber. The urinary bladder is normal without stones. The uterus is surgically absent. No significant free fluid or bulky lymphadenopathy is identified. Impression: Moderate stool burden within the distal colon, suggestive for constipation. There is also moderate fl uid and gaseous dilatation of the more proximal colon as well as small bowel, which could represent g eneralized ileus or developing bowel obstruction of uncertain etiology. Clinical correlation recommen ded. Grossly stable intra and extrahepatic biliary dilatation, which may be related to postcholecystectomy state. Correlation with biliary indices is recommended to exclude biliary obstruction. Nonobstructing left nephrolithiasis and additional findings, as above. Reported By:
[2018-02-23 00:56] LABS: BASOPHILS # (AUTO) 0.1 X10^3/uL (0.0-0.1); BASOPHILS % (AUTO) 1.1 % (0.2-1.0); EOSINOPHILS # (AUTO) 0.2 x10^3/uL (0.0-0.2); EOSINOPHILS % (AUTO) 1.9 % (0.9-2.9); HEMATOCRIT 35.9 % (36.0-47.0); LYMPHOCYTES # (AUTO) 2.3 X10^3/uL (1.3-2.9); LYMPHOCYTES % (AUTO) 24.3 % (21.0-51.0); MEAN CORPUSCULAR HEMOGLOBIN 27.5 pg (27.0-34.0); MEAN CORPUSCULAR HGB CONC 33.3 g/dL (33.0-35.0); MEAN CORPUSCULAR VOLUME 82.6 fL (80.0-100.0); MEAN PLATELET VOLUME 6.6 fL (7.4-11.0); MONOCYTES # (AUTO) 0.8 x10^3/uL (0.3-0.8); MONOCYTES % (AUTO) 8.1 % (0.0-13.0); NEUTROPHILS # (AUTO) 6.1 x10^3/uL (2.2-4.8); NEUTROPHILS % (AUTO) 64.6 % (42.0-75.0); PLATELET COUNT 477 X10^3/uL (150.0-450.0); RED BLOOD COUNT 4.35 X10^6/uL (3.5-5.4); RED CELL DISTRIBUTION WIDTH 16.6 % (11.6-16.5); WHITE BLOOD COUNT 9.5 X10^3/uL (3.6-10.0)
[2018-02-23 01:05] LABS: ALANINE AMINOTRANSFERASE 25 Units/L (12-78); ALBUMIN 4.1 g/dL (3.4-5.0); ALKALINE PHOSPHATASE 136 Units/L (46-116); ASPARTATE AMINO TRANSFERASE 19 Units/L (15-37); BLOOD UREA NITROGEN 16 mg/dL (7-18); CALCIUM 9.3 mg/dL (8.5-10.1); CARBON DIOXIDE 34.4 mmol/L (21-32); CHLORIDE 100 mmol/L (98-107); COR NA(FOR HYPERGLY) 141 mmol/L (136-145); CREATININE 0.99 mg/dL (0.55-1.02); SODIUM 140 mmol/L (136-145); TOTAL PROTEIN 7.8 g/dL (6.4-8.2); eGFR NON BLACK RACES > 60 (>60)
[2018-02-23] MEDS: NS 1000 ML 1,000 ML IV SCH ×3 (01:06→16:23)
[2018-02-23 01:14] LABS: AMYLASE 41 Units/L (25-115); LIPASE 106 Units/L (73-393)
[2018-02-23] MEDS ORDERED: DILAUDID INJ ONE (01:19)
[2018-02-23] MEDS: DILAUDID INJ IVP PRN ×5 (01:26→21:39)
[2018-02-23] MEDS ORDERED: DILAUDID INJ IVP PRN (02:03)
[2018-02-23 03:22] VITALS: BMI 29.0
[2018-02-23] MEDS: PEPCID 20 MG IV PREMIX* 20 MG/50 ML BAG IV PRN ×2 (03:24→17:12)
--- NOTE | 2018-02-23 04:06 | ED.ABDFE ---
HPI Time Seen Time seen: 00:17 PCP Primary Care Physician: Dr. Funmi Ferrera HPI Comment HPI Comment: PATIENT SAID SHE HAS HAD PROGRESSIVE PAIN FOR ONE DAY. HOME MEDICATION DID NOT HELP PAIN. NAUSEATED AND VOMITING. NO FEVER OR DYSURIA. ABDOMEN MARKEDLY DISTENDED. PAIN WORSE TONIGHT. NO BM TODAY. Complaint Doctors Chief Complaint Comments: ABDOMINNAL PAIN AND DISTENSION TIMES ONE DAY. Chief Complaint:: Bowel Obstruction, Stomach Pains Self Treatment fo Chief Complaint: Xanax patient states that she had 2.5 to try to relax things but it is not working. Source History Provided: Patient and Family Member Mode of arrival Mode of Arrival: Ambulatory Timing Onset of Chief Complaint: 02/22/18 Came on: Suddenly Duration Since Onset: Constant Duration: Days Location Location: Diffuse Severity Severity: Moderate Quality Quality: Cramping, Sharp and Generalized Context History of: Abdominal surgery and Similar pain (dx) Modifying factors Worsening Factors: Food Improving Factors: Nothing Associated signs and symptoms Associated Signs and Symptoms: Nausea Other history Other History: SOB PMH PMH Past Medical History: Yes Past Medical History: Migraines Past Medical History Comment: 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 Past Surgical History: Yes Surgical History: Cholecystectomy Family History History of Family Medical Conditions: No Family Medical History: Heart Failure Family Medical History Comment: Dad-Unknown Social History Does patient currently use any type of tobacco product: No Have you used tobacco products in the last 12 months: No Type of Tobacco Use: None Does any household member use tobacco: No Do you use any recreational Drugs:: No Lives With: Spouse Lives Where: Home infectious screening In the last 2 months have you had wt loss of >10#?: NO Have you had fever, night sweats or hemotysis?: No Have you traveled outside the country in the last 6 months?: No Isolation: Standard ROS Review of Systems Constitutional: No Symptoms Reported, Weakness and Fatigue; negative Diaphoresis and Fever Eyes: No Symptoms Reported ENTM: No Symptoms Reported Respiratoy: Short of Breath Cardiovascular: No Symptoms Reported Gastrointestinal/Abdominal: Abdominal Pain, Nausea and Vomiting; negative Diarrhea Genitourinary: negative Dysuria, Frequency, Hematuria, Pain and Bleeding Neurological: Anxiety, Headache, Weakness and Dizziness Musculoskeletal: Back Pain and Muscle Pain Integumentary: No Symptoms Reported and Dryness Hematologic/Lymphatic: No Symptoms Reported Endocrine: No Symptoms Reported Psychiatric: No Symptoms Reported All Other Systems: Reviewed and Negative PE Vital Signs Vitals: Temperature 97.5 F Pulse Rate [Left] 95 Pulse Rate 92 Respiratory Rate 22 Blood Pressure [Right Arm] 125/69 Blood Pressure [Left Arm] 98/57 Blood Pressure 115/59 O2 Sat by Pulse Oximetry 95 General Limitations: No Limitations General Appearance: Alert, In No Apparent Distress and Anxious Head Head Exam: Normal Inspection, Atraumatic and Normocephalic Eyes Eye exam: Normal Appearance, PERRL and EOMI; negative Scleral Icterus and Conjunctival Injection ENT ENT Exam: Normal Exam Neck Neck Exam: Normal Inspection and Trachea Midline; negative Tenderness and Meningismus Chest Chest Inspection: Normal Inspection and Symmetric Chest Wall Rise Respiratory Respiratory Exam: Normal Lung Sounds Bilat; negative Chest Wall Tenderness Respiratory Exam: Bilateral: Rhonchi and Lower: Rhonchi Cardiovascular Cardiovascular Exam: Regular Rate, Normal Rhythm and Normal Heart Sounds Abdominal Exam Abdominal Exam: Normal Bowel Sounds, Distention and Tenderness Abdominal Tenderness: Diffuse Rectal Rectal Exam: Deferred Back Back Exam: Normal Inspection Extremeties Extremities Exam: Normal Inspection External Exam: Female: Deferred : Speculum Exam (Female): Deferred : Bimanual Exam (female): Deferred Neurologic Neurological Exam: Alert, Oriented X3 and CN II-XII Intact; negative Motor Sensory Deficit Psychiatric Psychiatric Exam: Anxious Skin Skin Exam: Warm, Dry, Intact and Normal Color MDM Differential Diagnosis Differential Diagnosis- Considerations may include:: Bowel Obstruction, Cholcystitis, Cholelethiasis, Constipation, Diverticular disease, Gastritus/PUD , Pancreatitis, Urinary tract infection and Urolithiasis COURSE Treatment Treatment: SEE ORDERS. Education/Counseling Education/Counseling: Patient, Family and Education Educated On: Diagnosis ROR Labs Reviewed Laboratory Results Reviewed?: Yes Result Diagrams: 02/23/18 00:45 02/23/18 00:45 Laboratory: WBC 9.5 X10^3/uL (3.6-10.0) 02/23/18 00:45 RBC 4.35 X10^6/uL (3.5-5.4) 02/23/18 00:45 Hgb 12.0 g/dL (12.0-16.0) 02/23/18 00:45 Hct 35.9 % (36.0-47.0) L 02/23/18 00:45 MCV 82.6 fL (80.0-100.0) 02/23/18 00:45 MCH 27.5 pg (27.0-34.0) 02/23/18 00:45 MCHC 33.3 g/dL (33.0-35.0) 02/23/18 00:45 RDW 16.6 % (11.6-16.5) H 02/23/18 00:45 Plt Count 477 X10^3/uL (150.0-450.0) H 02/23/18 00:45 MPV 6.6 fL (7.4-11.0) L 02/23/18 00:45 Neut % (Auto) 64.6 % (42.0-75.0) 02/23/18 00:45 Lymph % (Auto) 24.3 % (21.0-51.0) 02/23/18 00:45 [place] % (Auto) 8.1 % (0.0-13.0) 02/23/18 00:45 Eos % (Auto) 1.9 % (0.9-2.9) 02/23/18 00:45 Baso % (Auto) 1.1 % (0.2-1.0) H 02/23/18 00:45 Neut # (Auto) 6.1 x10^3/uL (2.2-4.8) H 02/23/18 00:45 Lymph # (Auto) 2.3 X10^3/uL (1.3-2.9) 02/23/18 00:45 [place] # (Auto) 0.8 x10^3/uL (0.3-0.8) 02/23/18 00:45 Eos # (Auto) 0.2 x10^3/uL (0.0-0.2) 02/23/18 00:45 Baso # (Auto) 0.1 X10^3/uL (0.0-0.1) 02/23/18 00:45 Absolute Nucleated RBC 0.0 /100WBC 02/23/18 00:45 Sodium 140 mmol/L (136-145) 02/23/18 00:45 Corrected Sodium 141 mmol/L (136-145) 02/23/18 00:45 Potassium 4.2 mmol/L (3.5-5.1) 02/23/18 00:45 Chloride 100 mmol/L (98-107) 02/23/18 00:45 Carbon Dioxide 34.4 mmol/L (21-32) H 02/23/18 00:45 BUN 16 mg/dL (7-18) 02/23/18 00:45 Creatinine 0.99 mg/dL (0.55-1.02) 02/23/18 00:45 Est GFR (MDRD) Af Amer > 60 (>60) 02/23/18 00:45 Est GFR (MDRD) Non-Af > 60 (>60) 02/23/18 00:45 Glucose 124 mg/dL (65-99) H 02/23/18 00:45 Calcium 9.3 mg/dL (8.5-10.1) 02/23/18 00:45 Corrected Calcium TNP 02/23/18 00:45 Total Bilirubin 0.10 mg/dL (0.2-1.0) L 02/23/18 00:45 AST 19 Units/L (15-37) 02/23/18 00:45 ALT 25 Units/L (12-78) 02/23/18 00:45 Alkaline Phosphatase 136 Units/L (46-116) H 02/23/18 00:45 Total Protein 7.8 g/dL (6.4-8.2) 02/23/18 00:45 Albumin 4.1 g/dL (3.4-5.0) 02/23/18 00:45 Globulin 3.7 g/dL (2.5-4.5) 02/23/18 00:45 Albumin/Globulin Ratio 1.1 Ratio (1.1-2.1) 02/23/18 00:45 Amylase 41 Units/L (25-115) 02/23/18 00:45 Lipase 106 Units/L (73-393) 02/23/18 00:45 XRAY XRAY Interpreted by: Radiologist XRAY Findings: REPORT DISCUSS WITH PATIENT. Diagnosis Discharge Problem: Abdominal pain, Bowel obstruction
[2018-02-23 05:58] LABS: BASOPHILS # (AUTO) 0.2 X10^3/uL (0.0-0.1); BASOPHILS % (AUTO) 0.9 % (0.2-1.0); EOSINOPHILS # (AUTO) 0.1 x10^3/uL (0.0-0.2); EOSINOPHILS % (AUTO) 0.3 % (0.9-2.9); HEMATOCRIT 35.2 % (36.0-47.0); HEMOGLOBIN 11.7 g/dL (12.0-16.0); LYMPHOCYTES # (AUTO) 1.8 X10^3/uL (1.3-2.9); LYMPHOCYTES % (AUTO) 9.3 % (21.0-51.0); MEAN CORPUSCULAR HEMOGLOBIN 27.7 pg (27.0-34.0); MEAN CORPUSCULAR HGB CONC 33.3 g/dL (33.0-35.0); MEAN CORPUSCULAR VOLUME 83.1 fL (80.0-100.0); MEAN PLATELET VOLUME 6.7 fL (7.4-11.0); MONOCYTES # (AUTO) 1.5 x10^3/uL (0.3-0.8); MONOCYTES % (AUTO) 7.6 % (0.0-13.0); NEUTROPHILS # (AUTO) 15.7 x10^3/uL (2.2-4.8); NEUTROPHILS % (AUTO) 81.9 % (42.0-75.0); PLATELET COUNT 481 X10^3/uL (150.0-450.0); RED BLOOD COUNT 4.24 X10^6/uL (3.5-5.4); RED CELL DISTRIBUTION WIDTH 16.4 % (11.6-16.5); WHITE BLOOD COUNT 19.1 X10^3/uL (3.6-10.0)
[2018-02-23 06:15] LABS: BILIRUBIN,URINE NEGATIVE (NEGATIVE); BLOOD/HEMOGLOBIN,URINE 1+ (NEGATIVE); GLUCOSE, URINE NEGATIVE (NEGATIVE); KETONES,URINE NEGATIVE (NEGATIVE); LEUKOCYTE ESTERASE ,URINE NEGATIVE (NEGATIVE); NITRITES,URINE NEGATIVE (NEGATIVE); PROTEIN,URINE 1+ (NEGATIVE); UROBILINOGEN,URINE NORMAL (NORMAL)
[2018-02-23 06:23] LABS: APPEARANCE,URINE CLEAR (CLEAR); COLOR,URINE YELLOW (YELLOW); SQUAMOUS EPITHELIAL CELL,UR RARE /HPF (NEGATIVE)
[2018-02-23 06:24] LABS: BACTERIA,URINE TRACE /HPF (NEGATIVE); HYALINE CASTS, URINE FEW /LPF (NEGATIVE); MUCUS,URINE MODERATE /HPF (NEGATIVE)
[2018-02-23 06:41] LABS: ALANINE AMINOTRANSFERASE 24 Units/L (12-78); ALBUMIN 4.1 g/dL (3.4-5.0); ALKALINE PHOSPHATASE 133 Units/L (46-116); ASPARTATE AMINO TRANSFERASE 21 Units/L (15-37); BLOOD UREA NITROGEN 18 mg/dL (7-18); CALCIUM 9.4 mg/dL (8.5-10.1); CARBON DIOXIDE 29.9 mmol/L (21-32); CHLORIDE 102 mmol/L (98-107); COR NA(FOR HYPERGLY) 143 mmol/L (136-145); CREATININE 0.95 mg/dL (0.55-1.02); SODIUM 141 mmol/L (136-145); TOTAL PROTEIN 7.9 g/dL (6.4-8.2); eGFR NON BLACK RACES > 60 (>60)
[2018-02-23] MEDS: ZOFRAN INJ 4 MG VIAL IVP PRN ×3 (09:27→23:30)
--- NOTE | 2018-02-23 18:11 | DR.H&P ---
H&P - History & Physical for Day of: H&P Date: 02/23/18 - Chief Complaint Chief Complaint: ABDOMINAL PAIN - History of Present Illness History of Present Illness: 57 WF ER ADMISSION AFTER PRESENTING WITH CO INTRACTABLE ABDOMINAL PAIN, HX OF MULTPLE ABDOMINAL SURGERIES AND HX OF BOWEL OBSTRUCTIONS. PT XRAY ABD REVEALED EARLY OBSTRUCTION, DR PATTERSON CONSULTED. PT ADMITTED FOR TREATMENT OF ACUTE ABDOMINAL PAIN - Past Medical History Past Medical History: Migraines Additional Medical History: ABDOMINAL ADHESIONS - Past Surgical History Surgical History: Cholecystectomy - Family History Family Medical History: Heart Failure - Social History Does patient currently use any type of tobacco product: No Have you used tobacco products in the last 12 months: No Type of Tobacco Use: None Does any household member use tobacco: No Alcohol Use: None Drug Use: None - Medications Home Medications: gabapentin [From Neurontin] Allergy (Verified 12/31/17 17:57) metoclopramide [From Reglan] Allergy (Verified 12/31/17 17:57) sertraline [From Zoloft] Allergy (Verified 12/31/17 17:57) morphine Adverse Reaction (Verified 12/31/17 17:57) CONTINUE taking the following medications buspirone 10 mg PO TID 02/23/18 [History] duloxetine 30 mg PO DAILY 02/23/18 [History] escitalopram oxalate 1 tab PO DAILY 02/23/18 [History] loratadine 1 cap PO DAILY 02/23/18 [History] tizanidine 2 mg PO DAILY 02/23/18 [History] - Review of Systems Constitutional: Weakness Eyes: No Symptoms Reported ENT: No Symptoms Reported Respiratory: No Symptoms Reported Gastrointestinal: Nausea, Vomiting, Abdominal Pain Genitourinary: No Symptoms Reported Musculoskeletal: No Symptoms Reported Skin: No Symptoms Reported Neurological: No Symptoms Reported - Physical Exam Vital Signs: Temperature 97.7 F Pulse Rate [Left] 99 Pulse Rate 92 Respiratory Rate 18 Blood Pressure [Right Arm] 125/70 Blood Pressure [Left Arm] 98/57 Blood Pressure 115/59 O2 Sat by Pulse Oximetry 94 Oriented: Normal Eyes: Normal Ear: Normal Nose: Normal Throat: Normal Respiratory: RLL Diminished, LLL Diminished Cardiovascular: Tachycardia Auscultation: Bowel Sounds: Normal Palpation: Normal Tenderness: Diffuse Skin: Normal Musculoskeletal: Normal Psychiatric: Anxiety Mood Description: Angry, Anxious Affect: Anxious Speech Pattern: Clear, Appropriate - Assessment/Plan (1) Abdominal pain Qualifiers: Abdominal location: generalized Qualified Code(s): R10.84 - Generalized abdominal pain Status: Acute Plan: ADMIT, PAIN CONTROL. NPO, GENTLY HYDRATION. NGTUBE AT LIS IF INTRACTABLE N/V. REPEAT AM KUB, SURGICAL CONSULT (2) Bowel obstruction Qualifiers: Intestinal obstruction type: unspecified ileus Qualified Code(s): K56.7 - Ileus, unspecified Status: Acute - Allergies Allergies/Adverse Reactions: Allergies Allergy/AdvReac Type Severity Reaction Status Date / Time gabapentin [From Neurontin] Allergy Verified 12/31/17 17:57 metoclopramide [From Reglan] Allergy Verified 12/31/17 17:57 sertraline [From Zoloft] Allergy Verified 12/31/17 17:57 morphine AdvReac Verified 12/31/17 17:57
[2018-02-24] MEDS: NS 1000 ML 1,000 ML IV SCH ×4 (00:37→23:59)
[2018-02-24] MEDS: DILAUDID INJ IVP PRN ×5 (02:30→23:59)
--- NOTE | 2018-02-24 05:34 | RAD ---
Acute abdominal series, three views Indication: Abdominal pain, distension Comparison: CT abdomen and pelvis from same day Findings: The heart is normal in size for AP technique. Mild subsegmental atelectasis within the left lung base is noted. No focal consolidation, significant effusion or pneumothorax is identified. There is diffuse fluid and gaseous distension of the large as well as small bowel, unchanged since th e CT abdomen/pelvis exam from earlier today. No pneumatosis or free intraperitoneal air is identified . Known punctate nonobstructing left renal stone is not well appreciated radiographically. Imaged oss eous structures are grossly intact. Impression: No acute cardiopulmonary abnormality. Grossly stable diffuse fluid and gaseous distension of the large as well as small bowel, again possib ly representing generalized ileus or distal colonic obstruction. Clinical correlation and continued c lose radiographic follow-up is recommended, as indicated. Reported By:
[2018-02-24 06:02] LABS: BASOPHILS % (AUTO) 0.3 % (0.2-1.0); EOSINOPHILS # (AUTO) 0.2 x10^3/uL (0.0-0.2); EOSINOPHILS % (AUTO) 2.1 % (0.9-2.9); HEMATOCRIT 30.3 % (36.0-47.0); LYMPHOCYTES # (AUTO) 2.1 X10^3/uL (1.3-2.9); LYMPHOCYTES % (AUTO) 24.6 % (21.0-51.0); MEAN CORPUSCULAR HEMOGLOBIN 27.4 pg (27.0-34.0); MEAN CORPUSCULAR VOLUME 83.1 fL (80.0-100.0); MONOCYTES # (AUTO) 1.1 x10^3/uL (0.3-0.8); MONOCYTES % (AUTO) 12.5 % (0.0-13.0); NEUTROPHILS # (AUTO) 5.3 x10^3/uL (2.2-4.8); NEUTROPHILS % (AUTO) 60.5 % (42.0-75.0); PLATELET COUNT 367 X10^3/uL (150.0-450.0); RED BLOOD COUNT 3.65 X10^6/uL (3.5-5.4); RED CELL DISTRIBUTION WIDTH 16.9 % (11.6-16.5); WHITE BLOOD COUNT 8.7 X10^3/uL (3.6-10.0)
[2018-02-24 06:23] LABS: ALANINE AMINOTRANSFERASE 18 Units/L (12-78); ALBUMIN 3.2 g/dL (3.4-5.0); ALKALINE PHOSPHATASE 111 Units/L (46-116); ASPARTATE AMINO TRANSFERASE 16 Units/L (15-37); BLOOD UREA NITROGEN 9 mg/dL (7-18); CHLORIDE 106 mmol/L (98-107); COR CA(FOR HYPOALB) 8.6 mg/dL (8.5-10.1); CREATININE 0.71 mg/dL (0.55-1.02); SODIUM 140 mmol/L (136-145); TOTAL PROTEIN 6.5 g/dL (6.4-8.2); eGFR NON BLACK RACES > 60 (>60)
--- NOTE | 2018-02-24 07:10 | RAD ---
HISTORY: Constipation, bowel obstruction Study: Abdomen series with frontal chest Comparison: 02/23/2018 Technique: KUB and upright views are provided as well as a frontal view of the chest. Findings: Trachea is midline. There is mild cardiomegaly. Lungs and pleural spaces are clear. Osseous structure s are intact. Surgical clips are present from cholecystectomy. Gaseous and fluid distention of large and small yazmin l loops has improved slightly compared to the prior studies. Findings still have the appearance of a generalized ileus. Air is identified to the level of the lower rectum. No free intraperitoneal air or fluid is seen. Differential air-fluid levels are present within the small bowel on the upright view. No opaque stone is seen. IMPRESSION: Generalized ileus pattern with slight improvement compared to the prior study. Hypertensive configuration without acute cardiopulmonary disease. Reported By:
[2018-02-24] MEDS ORDERED: LAMOTRIGINE PO SCH (12:00)
[2018-02-24] MEDS: ATIVAN TAB 1 MG PO SCH ×2 (13:24→21:01)
[2018-02-24] MEDS: LAMICTAL TAB 100 MG PO SCH ×2 (13:24→21:00)
[2018-02-24] MEDS: ZOFRAN INJ 4 MG VIAL IVP PRN ×2 (13:35→21:01)
--- NOTE | 2018-02-24 17:50 | PCM.PROG ---
Progress Note - Progress Note for Day of Date of Exam: 02/24/18 - Subjective Subjective: 57 WF ADMITTED ON 02/23 WITH EARLY SBO. KUB THIS AM REVEALS IELUS. PT REPORTS LARGE BM YESTERDAY AFTERNOON. PT STATES PAIN HAS IMPROVED. PT ASKING TO ADVANCE DIET, DENIES ANY N/V THIS AM - Past Medical Family Social History Past Med/Fam/Surg Hx: No changes since H&P Allergies: Allergies gabapentin [From Neurontin] Allergy (Verified 12/31/17 17:57) metoclopramide [From Reglan] Allergy (Verified 12/31/17 17:57) sertraline [From Zoloft] Allergy (Verified 12/31/17 17:57) morphine Adverse Reaction (Verified 12/31/17 17:57) - Review of Systems ROS: No change since H&P - Vital Signs and I&O's Vital Signs: Temperature 98.6 F Pulse Rate [Left] 96 Pulse Rate 92 Respiratory Rate 20 Blood Pressure [Right Arm] 121/58 Blood Pressure [Left Arm] 98/57 Blood Pressure 115/59 O2 Sat by Pulse Oximetry 96 Intake and Output: Intake & Output 02/22/18 02/23/18 02/24/18 02/25/18 11:59 11:59 11:59 11:59 Intake Total 325 / 325 2134 / 2134 240 / 240 Balance 325 / 325 2134 / 2134 240 / 240 - Physical Exam Oriented: Normal Eyes: Normal Ear: Normal Nose: Normal Throat: Normal Cardiovascular: Tachycardia Auscultation: Bowel Sounds: Increased Tenderness: Diffuse Skin: Normal Musculoskeletal: Normal Psychiatric: Anxiety Mood Description: Anxious Affect: Anxious Speech Pattern: Clear, Appropriate - Laboratory and Diagnostics Result Diagrams: 02/24/18 05:15 02/24/18 05:15 Labs: Laboratory WBC 8.7 X10^3/uL (3.6-10.0) D 02/24/18 05:15 RBC 3.65 X10^6/uL (3.5-5.4) 02/24/18 05:15 Hgb 10.0 g/dL (12.0-16.0) L 02/24/18 05:15 Hct 30.3 % (36.0-47.0) L 02/24/18 05:15 MCV 83.1 fL (80.0-100.0) 02/24/18 05:15 MCH 27.4 pg (27.0-34.0) 02/24/18 05:15 MCHC 33.0 g/dL (33.0-35.0) 02/24/18 05:15 RDW 16.9 % (11.6-16.5) H 02/24/18 05:15 Plt Count 367 X10^3/uL (150.0-450.0) 02/24/18 05:15 MPV 7.0 fL (7.4-11.0) L 02/24/18 05:15 Neut % (Auto) 60.5 % (42.0-75.0) 02/24/18 05:15 Lymph % (Auto) 24.6 % (21.0-51.0) 02/24/18 05:15 Gaines % (Auto) 12.5 % (0.0-13.0) 02/24/18 05:15 Eos % (Auto) 2.1 % (0.9-2.9) 02/24/18 05:15 Baso % (Auto) 0.3 % (0.2-1.0) 02/24/18 05:15 Neut # (Auto) 5.3 x10^3/uL (2.2-4.8) H 02/24/18 05:15 Lymph # (Auto) 2.1 X10^3/uL (1.3-2.9) 02/24/18 05:15 Gaines # (Auto) 1.1 x10^3/uL (0.3-0.8) H 02/24/18 05:15 Eos # (Auto) 0.2 x10^3/uL (0.0-0.2) 02/24/18 05:15 Baso # (Auto) 0.0 X10^3/uL (0.0-0.1) 02/24/18 05:15 Absolute Nucleated RBC 0.0 /100WBC 02/24/18 05:15 Sodium 140 mmol/L (136-145) 02/24/18 05:15 Corrected Sodium TNP 02/24/18 05:15 Potassium 4.0 mmol/L (3.5-5.1) 02/24/18 05:15 Chloride 106 mmol/L (98-107) 02/24/18 05:15 Carbon Dioxide 27.0 mmol/L (21-32) 02/24/18 05:15 BUN 9 mg/dL (7-18) 02/24/18 05:15 Creatinine 0.71 mg/dL (0.55-1.02) 02/24/18 05:15 Est GFR (MDRD) Af Amer > 60 (>60) 02/24/18 05:15 Est GFR (MDRD) Non-Af > 60 (>60) 02/24/18 05:15 Glucose 109 mg/dL (65-99) H 02/24/18 05:15 Calcium 8.0 mg/dL (8.5-10.1) L 02/24/18 05:15 Corrected Calcium 8.6 mg/dL (8.5-10.1) 02/24/18 05:15 Total Bilirubin 0.20 mg/dL (0.2-1.0) 02/24/18 05:15 AST 16 Units/L (15-37) 02/24/18 05:15 ALT 18 Units/L (12-78) 02/24/18 05:15 Alkaline Phosphatase 111 Units/L (46-116) 02/24/18 05:15 Total Protein 6.5 g/dL (6.4-8.2) 02/24/18 05:15 Albumin 3.2 g/dL (3.4-5.0) L 02/24/18 05:15 Globulin 3.3 g/dL (2.5-4.5) 02/24/18 05:15 Albumin/Globulin Ratio 1.0 Ratio (1.1-2.1) L 02/24/18 05:15 Amylase 41 Units/L (25-115) 02/23/18 00:45 Lipase 106 Units/L (73-393) 02/23/18 00:45 Specimen Type Catherized urine 02/23/18 06:04 Urine Color Yellow (YELLOW) 02/23/18 06:04 Urine Appearance Clear (CLEAR) 02/23/18 06:04 Urine pH 6.0 (5.0 - 8.0) 02/23/18 06:04 Ur Specific [place] 1.025 (1.000-1.030) 02/23/18 06:04 Urine Protein 1+ (NEGATIVE) 02/23/18 06:04 Urine Glucose (UA) Negative (NEGATIVE) 02/23/18 06:04 Urine Ketones Negative (NEGATIVE) 02/23/18 06:04 Urine Occult Blood 1+ (NEGATIVE) 02/23/18 06:04 Urine Nitrite Negative (NEGATIVE) 02/23/18 06:04 Urine Bilirubin Negative (NEGATIVE) 02/23/18 06:04 Urine Urobilinogen Normal (NORMAL) 02/23/18 06:04 Ur Leukocyte Esterase Negative (NEGATIVE) 02/23/18 06:04 Urine RBC 3-5 /HPF (NONE SEEN) 02/23/18 06:04 Urine WBC 0-2 /HPF (NONE SEEN) 02/23/18 06:04 Ur Squamous Epith Cells Rare /HPF (NEGATIVE) 02/23/18 06:04 Urine Bacteria Trace /HPF (NEGATIVE) 02/23/18 06:04 Hyaline Casts Few /LPF (NEGATIVE) 02/23/18 06:04 Urine Mucus Moderate /HPF (NEGATIVE) 02/23/18 06:04 Ur Culture Indicated? No/not indicated 02/23/18 06:04 - Plan (1) Abdominal pain Status: Acute Qualifiers: Abdominal location: generalized Qualified Code(s): R10.84 - Generalized abdominal pain Plan: PAIN CONTROL. ADVANCE DIET WITH CLEAR LIQUIDS. GENTLE HYDRATION. NGTUBE AT LIS IF INTRACTABLE N/V. REPEAT AM KUB, SURGICAL CONSULT WITH DR PATTERSON (2) Bowel obstruction Status: Acute Qualifiers: Intestinal obstruction type: unspecified ileus Qualified Code(s): K56.7 - Ileus, unspecified
[2018-02-25 05:25] LABS: BASOPHILS % (AUTO) 0.5 % (0.2-1.0); EOSINOPHILS # (AUTO) 0.1 x10^3/uL (0.0-0.2); EOSINOPHILS % (AUTO) 1.6 % (0.9-2.9); HEMATOCRIT 28.8 % (36.0-47.0); HEMOGLOBIN 9.4 g/dL (12.0-16.0); LYMPHOCYTES # (AUTO) 2.5 X10^3/uL (1.3-2.9); MEAN CORPUSCULAR HGB CONC 32.8 g/dL (33.0-35.0); MEAN CORPUSCULAR VOLUME 82.3 fL (80.0-100.0); MEAN PLATELET VOLUME 6.6 fL (7.4-11.0); MONOCYTES # (AUTO) 0.8 x10^3/uL (0.3-0.8); MONOCYTES % (AUTO) 10.9 % (0.0-13.0); NEUTROPHILS # (AUTO) 4.1 x10^3/uL (2.2-4.8); PLATELET COUNT 331 X10^3/uL (150.0-450.0); RED CELL DISTRIBUTION WIDTH 16.3 % (11.6-16.5); WHITE BLOOD COUNT 7.6 X10^3/uL (3.6-10.0)
[2018-02-25 05:37] LABS: ALANINE AMINOTRANSFERASE 17 Units/L (12-78); ALBUMIN 3.1 g/dL (3.4-5.0); ALKALINE PHOSPHATASE 97 Units/L (46-116); ASPARTATE AMINO TRANSFERASE 16 Units/L (15-37); BLOOD UREA NITROGEN 2 mg/dL (7-18); CALCIUM 8.1 mg/dL (8.5-10.1); CARBON DIOXIDE 27.8 mmol/L (21-32); CHLORIDE 106 mmol/L (98-107); COR CA(FOR HYPOALB) 8.8 mg/dL (8.5-10.1); CREATININE 0.64 mg/dL (0.55-1.02); SODIUM 141 mmol/L (136-145); TOTAL PROTEIN 6.1 g/dL (6.4-8.2); eGFR NON BLACK RACES > 60 (>60)
[2018-02-25] MEDS ORDERED: K-LYTE EFFERVESCENT PO PRN (05:56)
[2018-02-25] MEDS ORDERED: K-RIDER 10 MEQ/NS 100 ML 10 MEQ/100 ML BAG IV PRN (05:56)
[2018-02-25] MEDS ORDERED: POTASSIUM CHLORIDE LIQ 20 MEQ UDC PO PRN (05:56)
[2018-02-25] MEDS ORDERED: POTASSIUM CHL 60 MEQ/NS 0.45% 500 ML IV PRN (05:56)
[2018-02-25] MEDS ORDERED: POTASSIUM CHL 40 MEQ/NS 0.45% 500 ML IV PRN (05:56)
[2018-02-25] MEDS: DILAUDID INJ IVP PRN (06:13)
[2018-02-25] MEDS: ATIVAN TAB 1 MG PO SCH (06:15)
[2018-02-25] MEDS: NS 1000 ML 1,000 ML IV SCH (06:15)
--- NOTE | 2018-02-25 06:38 | RAD ---
HISTORY: Ileus, follow-up Study: Flat and upright abdomen, PA chest Comparison: 02/24/2018 Findings: The abdominal gas pattern is nonspecific and nonobstructive. The pattern is consistent with a general ized ileus not significantly changed from the prior examination. No pneumoperitoneum is identified. N o abnormal masses or abnormal calcifications are identified. The lung painter are clear. The heart rem ains mildly enlarged. IMPRESSION: 1. Findings suggestive of ileus unchanged from the prior examination 2. Mild cardiomegaly without congestive heart failure 3. Lungs clear Reported By:
[2018-02-25] MEDS: LAMICTAL TAB 100 MG PO SCH (09:01)
[2018-02-25] MEDS ORDERED: MIRALAX POWDER (1 DOSE 17 G) PO STA (10:28)
[2018-02-25] MEDS ORDERED: ZITHROMAX INJ 500 MG VIAL 500 MG in NS 250 ML IV 250 ML IV SCH (11:00)
[2018-02-25 14:03] VITALS: BP 109/59
== END 2018-02-25 13:40 | disposition home or self-care (01) | DRG 390 ==
LOC: MED/SURG 23:40 → ER 23:40 → INTOOBSV 02-23 02:32 → OBSVTOIN 02-23 02:32 → MED/SURG 02-23 02:57
PROVIDERS: ADMIT Internal Medicine; ATTEND Internal Medicine
DX: R10.84 Generalized abdominal pain; R11.2 Nausea with vomiting, unspecified; R73.09 Other abnormal glucose; K56.7 Ileus, unspecified
CPT/HCPCS: 36415; 74022; 74176; 80053; 81001; 82150; 83690; 83735; 85025; 96365; 96367; 96372; 96374; 96375; 99283; 99284; A4222; S0028; G0378; J1170; J2175; J2405; J7030; J8499